=== PATIENT | male | born 1975 | race American Indian/Alaskan Native ===

== ENCOUNTER 2017-02-28 07:50 | Emergency (ER) | payer SELFPAY ==
--- NOTE | 2017-02-28 10:34 | Emergency Department Report ---
HPI - General Chief Complaint: Skin/Abscess/Foreign Body Time Seen by Provider: 02/28/17 09:58 - HPI HPI: This is a 42-year-old Afro-Welsh male presents to the emergency department with complaint of a rash that has been going on for the past 3-4 days it has been getting progressively worse. He has some raised circular lesions to the arms, palms, legs, genitals. He also has developed some blisters or aphthous ulcers within the mouth. He is currently working here but lives in [place]. He denies any recent travel or time spent camping or in the [facility] [place]. He denies any bleeding, weeping, drainage. He has not taken anything for symptoms prior to presentation. No drooling or trismus or any difficulty swallowing. ED Past Medical Hx - Past Medical History Previous Medical History?: No - Surgical History Past Surgical History?: Yes Additional Surgical History: Skin graft on right leg - Social History Smoking Status: Current Every Day Smoker Substance Use Type: Marijuana - Medications Home Medications: Home Medications Medication Instructions Recorded Confirmed Last Taken Type Loratadine 10 mg PO BID #20 tablet 02/28/17 Unknown Rx Triamcinolone 0.1% [Kenalog 0.1% 1 applic TP BID #1 tube 02/28/17 Unknown Rx CREAM] valACYclovir [Valtrex] 500 mg PO BID #6 tab 02/28/17 Unknown Rx ED Review of Systems ROS: Stated complaint: MOUTH SWELLING Other details as noted in HPI Comment: All other systems reviewed and negative Constitutional: denies: chills, fever Eyes: denies: eye pain, eye discharge, vision change ENT: throat pain. denies: ear pain Respiratory: denies: cough, shortness of breath, wheezing Cardiovascular: denies: chest pain, palpitations Gastrointestinal: denies: abdominal pain, nausea, diarrhea Genitourinary: denies: urgency, dysuria Musculoskeletal: denies: back pain, joint swelling, arthralgia Skin: rash, lesions Neurological: denies: headache, weakness, paresthesias Physical Exam - Physical Exam Vital Signs: Vital Signs 02/28/17 02/28/17 02/28/17 07:55 08:53 08:55 Temperature 99.1 F 98.5 F Pulse Rate 83 79 Respiratory 20 15 15 Rate Blood Pressure 146/97 Blood Pressure 127/86 [Left] O2 Sat by Pulse 100 98 98 Oximetry Physical Exam: GENERAL: The patient is well-developed well-nourished. HEENT: Normocephalic. Atraumatic. Extraocular motions are intact. Patient has moist mucous membranes. Pupils equal reactive to light bilaterally. There is an abscess ulcer to the lower anterior gum line as well as to the soft palate in the posterior pharynx. No drooling or trismus. No tonsillar hypertrophy, erythema or exudates. NECK: Supple. Trachea is midline. CHEST/LUNGS: Clear to auscultation. There is no respiratory distress noted. HEART/CARDIOVASCULAR: Regular. There is no tachycardia. There is no gallop rub or murmur. ABDOMEN: Abdomen is soft, nontender. Patient has normal bowel sounds. There is no abdominal distention. SKIN: The patient has multiple areas of grouped annular slightly raised lesions to the forearms, legs and to the bilateral palms. There is no bleeding, weeping , drainage. NEURO: The patient is awake, alert, and oriented. The patient is cooperative. The patient has no focal neurologic deficits. The patient has normal speech. MUSCULOSKELETAL: There is no tenderness or deformity. There is no limitation range of motion. There is no evidence of acute injury. ED Course Vital Signs 02/28/17 02/28/17 02/28/17 07:55 08:53 08:55 Temperature 99.1 F 98.5 F Pulse Rate 83 79 Respiratory 20 15 15 Rate Blood Pressure 146/97 Blood Pressure 127/86 [Left] O2 Sat by Pulse 100 98 98 Oximetry - Consultations Consultation #1: I spoke on the phone with Dr. Ravi Shabazz, dermatology, who was gracious enough to listen to the description of the rash and recommended Valtrex 500 mg twice a day 3 days, triamcinolone cream, and loratadine and for the patient to follow-up in his office. 02/28/17 12:16 ED Medical Decision Making - Lab Data Result diagrams: 02/28/17 10:45 - Medical Decision Making 42-year-old male presents with 3-4 day history of progressive annular grouped rash as well as some aphthous ulcers within the mouth. Spoke with dermatology who recommended Valtrex, anti-fungal cream and loratadine. CBC does not show any significant leukocytosis. Negative for strep pharyngitis. Given dermatology referral and prescriptions for these medications. Critical Care Time: No Critical care attestation.: If time is entered above; I have spent that time in minutes in the direct care of this critically ill patient, excluding procedure time. ED Disposition Clinical Impression: Rash Disposition: DC-01 TO HOME OR SELFCARE Is pt being admited?: No Condition: Stable Instructions: Acute Rash (ED) Additional Instructions: Please follow up with the Valve Steamer: Ravi Shabazz MD [address] [place] [address] Return to the emergency department with any worsening of her symptoms or any acute distress. Prescriptions: Loratadine 10 mg PO BID #20 tablet Triamcinolone 0.1% [Kenalog 0.1% CREAM] 1 applic TP BID #1 tube valACYclovir [Valtrex] 500 mg PO BID #6 tab Referrals: PRIMARY CARE, [Primary Care Provider] - 3-5 Days [facility] [Outside] - 3-5 Days Time of Disposition: 11:52
[2017-02-28] MEDS ORDERED: CLARITIN PO ONE (10:35)
[2017-02-28 10:56] LABS: Basophils % (Auto) 0.3 % (0.0-1.8); Eosinophils % (Auto) 7.4 % (0.0-4.3); Hemoglobin 15.6 gm/dl (11.8-15.2); Mean Corpuscular HGB Conc 34 % (32-34); Mean Corpuscular Hemoglobin 32 pg (28-32); Mean Corpuscular Volume 94 fl (84-94); Platelet Count 221 K/mm3 (140-440); Red Cell Distribution Width 14.8 % (13.2-15.2); White Blood Count 7.1 K/mm3 (4.5-11.0)
[2017-02-28] MEDS: VALTREX PO ONE ×2 (11:36→11:37)
[2017-02-28 11:41] VITALS: BP 132/89
== END 2017-02-28 12:04 | disposition home or self-care (01) ==
LOC: ED 07:50
DX: R21 Rash and other nonspecific skin eruption (principal); F17.200 Nicotine dependence, unspecified, uncomplicated; F12.10 Cannabis abuse, uncomplicated
CPT/HCPCS: 36415; 85025; 87116; 87430; 99283